=== PATIENT | female | born 1950 | race Caucasian/White ===

== ENCOUNTER 2024-03-22 13:45 | Outpatient (RCR) | payer MEDICARE, OTHER, SELFPAY ==
--- NOTE | 2023-11-22 12:34 | OT.OP.EVAL ---
Visit Care Team Role Provider Type RIA Xie Family Provider Non-Staff Primary Care Provider Specialty: Family Practice Address: [address], [place], [address] Email: Jaguar Hodges DO Attending Provider Non-Staff Referring Provider Specialty: Orthopedics Address: [address] [place] [address], [id number] Email: Occupational Therapy Initial Evaluation OT Outpatient Adult Evaluation Start: 11/22/23 12:06 Freq: Status: Active Protocol: Document 11/22/23 12:06 AMS (Rec: 11/22/23 12:34 AMS [id number]) General Information - Adult Visit Start Time 11:15 Visit Stop Time 11:55 Treatment Setting Outpatient Care Note Type Initial Evaluation Identification Confirmed Yes Identification Confirmed By Self Goals Treatment Initiated HEP. Electric Lift Truck Driver Goals 1. Krupa will be modified independent with home exercise program utilizing provided written and visual instructions from clinician as needed. 2. Krupa will be able to verbalize 100% understanding of basic joint protection principles (e.g., avoiding positions of deformity, avoiding tight sustained/ resistant pinches). 3. Krupa will be able to verbalize understanding of 2-3 different conservative measures of pain management for the hands. 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 Medical history is significant for arthritis, back pain, depression, dizziness/vertigo, migraine headaches, jaw pain, TKR left 2018, memory loss, shortness of breath, vision problems and gallbladder removal in 1991. Verbally reported arthritic nodules of R 3rd DIPJ, L hip pain, L hip bursitis, L IT band inflammation, L patellar tendon tracking difficulties, and CTS in the . Verbal report of h/o 2 corticosteroid injections to L thumb and 1 corticosteroid injection to R thumb. Krupa reports previously being seen by Lizy and being provided w/ custom brace for CMC arthritis; presents with [id number] splint that she wears on R 3rd DIPJ for protection. Whole Body Pain Assessment Grid completed; indication of 6 out of 10 on pain scale relative to L knee, 6 out of 10 relative to radial side of dorsum of L hand and 9 out of 10 relative to dorsum of R hand. Hand/ Wrist Pain Assessment Grid completed; indicated of 6-7 out of 10 relative to L DIPJ, 8-9 out of 10 relative to R 3rd DIPJ, 4 out of 10 relative to R 3rd PIPJ, 7 out of 10 relative to L thumb and 2-8 out of 10 relative to dorsum of R hand (d/t hitting the back of hand on dryer latch recently). 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 QuickDASH UE Outcome Measure Score = 29.55; QuickDASH UE Work Module Score = 12.5. She primarily utilizes ice packs in the home . She asks for assistance w/ opening jars; she uses an electric can residential direct support professional or uses the AE that was installed underneath her countertop to support opening of jars. She has a soft gel ball at home for use with her hands. 35 degrees active bilateral thumb abduction; 40 degrees active bilateral thumb palmar radial abduction. MPJ hyperextension noted of L thumb. B thumb webspace tightness. Outpatient OT is recommended to build upon already established HEP and joint protection education . Home Exercise Program 11/22/23 = Self-myofascial thumb adductor release; 20-30 sec hold and then switch w/ use of practice golf ball. Isometric/tug-o-war w/ functional 'c' w/ hold for 3-5 sec w/ practice sized golf ball, of 3 x 10 reps or as tolerated, 3 x a week or every other day. Length of treatment (weeks) 6 Plan of Care Start Date 11/22/23 Plan of Care End Date 01/03/24 Treatment Frequency Once a Week Therapeutic Contents Active Range of Motion, Adaptive Equipment Education, Functional Activities,Home Exercise Program,Joint Protection,Manual Therapy,Self -Care,Stretching/Flexibility Activities,Therapeutic Activities,Therapeutic Exercises,Modalities Modalities As Needed,As Prescribed Additional Types of Modalities Heat/Ice/Contrast Baths/ Ultrasound/Paraffin bath
--- NOTE | 2023-12-01 16:00 | OT.OP.TRT ---
Visit Care Team Role Provider Type RIA Xie Family Provider Non-Staff Primary Care Provider Specialty: Family Practice Address: [address] [facility] [address], [place], [address] Email: Jaguar Hodges DO Attending Provider Non-Staff Referring Provider Specialty: Orthopedics Address: [address] [place] [address], [id number] Email: Occupational Therapy Treatment Note OT Outpatient Treatment Note - Adult Start: 11/22/23 12:06 Freq: Status: Active Protocol: Document 12/01/23 16:00 AMS (Rec: 12/04/23 09:15 AMS [id number]) OT Outpatient Adult Treatment Note Session Time Visit Start Time 13:45 Visit Stop Time 14:28 Visit Information Visit Number 09/30; 10/09 Plan of Care Dates 11/22/23 - 01/03/24 Insurance Information Medicare; 19 visits -> KX Modifier visit Setting Treatment Setting Outpatient Care Visit Type Note Type Treatment Note General Information General Information Krupa is a 73 year-old right hand dominant female 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 Medical history is significant for arthritis, back pain, depression, dizziness/vertigo, migraine headaches, jaw pain, TKR left 2019, memory loss, shortness of breath, vision problems and gallbladder removal in 1991. Verbally reported arthritic nodules of R 3rd DIPJ, L hip pain, L hip bursitis, L IT band inflammation, L patellar tendon tracking difficulties, and CTS in the . Verbal report of h/o 2 corticosteroid injections to L thumb and 1 corticosteroid injection to R thumb. Krupa reports previously being seen by Lizy and being provided w/ custom brace for CMC arthritis; presents with [id number] splint that she wears on R 3rd DIPJ for protection. - Subjective Identification Type Name Identification Reconciled With Medical Record Observations Krupa reported buying practice 'golf balls' and ending up with a larger quantity than needed; indicated desire to review exercises. - Objective Objective Measurements Please refer to below for progress towards meeting established OT goals: Senior Care Goals 1. Krupa will be modified independent with home exercise program utilizing provided written and visual instructions from clinician as needed. 2. Krupa will be able to verbalize 100% understanding of basic joint protection principles (e.g., avoiding positions of deformity, avoiding tight sustained/ resistant pinches). 3. Krupa will be able to verbalize understanding of 2-3 different conservative measures of pain management for the hands. - Treatment 2 Descriptor Manual therapy provided by clinician; addressing L thumb adductor tightness. 1 Descriptor Ultrasound. 20% duty cycle. 2. 0 w/cm2. Skin intact pre- and post-treatment. Applied to dorsal thumb webspace of L hand; focus near 2nd metacarpal. Exercises 1 Descriptor HEP. Reviewed previously rec home exercises, including bilateral thumb webspace stretch w/ and without use of modification (practice golf ball) and place and hold/ isometric exercise w/ use of practice golf ball. Provided w / written and visual instructions for these 2 exercises. Provided w/ handout on basic joint protection; reviewed handout. Provided w/ handout on functional 'c' or ' o'. - Assessment Assessment of Improvement Reviewed HEP. Attempted to answer all questions. (+) tolerance of ultrasound/manual work to address L thumb webspace tightness. Provided handouts in re: basic joint protection and functional 'c' or 'o'. Outpatient OT is recommended to build upon already established HEP and joint protection education. Home Exercise Program 12/01/23 = Reviewed HEP. Provided written and visual instructions for exercises listed below. Provided handout on basic joint protection for the hands. Provided handout on functional 'c' or 'o'. 11/22/23 = Self-myofascial thumb adductor release; 20-30 sec hold and then switch w/ use of practice golf ball. Isometric/tug-o-war w/ functional 'c' w/ hold for 3-5 sec w/ practice sized golf ball, of 3 x 10 reps or as tolerated, 3 x a week or every other day. - Plan Therapy Recommendations Continue with Current Program, Advance per Rehabilitation Protocol
--- NOTE | 2023-12-08 16:04 | OT.OP.TRT ---
Visit Care Team Role Provider Type RIA Xie Family Provider Non-Staff Primary Care Provider Specialty: Family Practice Address: [address] [facility] [address], [place], [address] Email: Jaguar Hodges DO Attending Provider Non-Staff Referring Provider Specialty: Orthopedics Address: [address] [place] [address], [address] Email: Occupational Therapy Treatment Note OT Outpatient Treatment Note - Adult Start: 11/22/23 12:06 Freq: Status: Active Protocol: Document 12/08/23 15:58 AMS (Rec: 12/08/23 16:04 AMS [id number]) OT Outpatient Adult Treatment Note Session Time Visit Start Time 13:45 Visit Stop Time 14:25 Visit Information Visit Number 10/28; 11/06 Plan of Care Dates 11/22/23 - 01/03/24 Insurance Information Medicare; 19 visits -> KX Modifier visit Setting Treatment Setting Outpatient Care Visit Type Note Type Treatment Note General Information General Information Krupa is a 73 year-old right hand dominant female 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 Medical history is significant for arthritis, back pain, depression, dizziness/vertigo, migraine headaches, jaw pain, TKR left 2019, memory loss, shortness of breath, vision problems and gallbladder removal in 1991. Verbally reported arthritic nodules of R 3rd DIPJ, L hip pain, L hip bursitis, L IT band inflammation, L patellar tendon tracking difficulties, and CTS in the . Verbal report of h/o 2 corticosteroid injections to L thumb and 1 corticosteroid injection to R thumb. Krupa reports previously being seen by Lizy and being provided w/ custom brace for CMC arthritis; presents with [id number]-[id number]-[id number] splint that she wears on R 3rd DIPJ for protection. - Subjective Identification Type Name Identification Reconciled With Medical Record Observations Use of R 3rd digit splint which reportedly effectively disperses force over joint where metal insert and padded compartments are located. Krupa indicated that she got 6 of the finger splints off of [employer]. - Objective Objective Measurements Please refer to below for progress towards meeting established OT goals: Vending Service Technician Goals 1. Krupa will be modified independent with home exercise program utilizing provided written and visual instructions from clinician as needed. 2. Krupa will be able to verbalize 100% understanding of basic joint protection principles (e.g., avoiding positions of deformity, avoiding tight sustained/ resistant pinches). 3. Krupa will be able to verbalize understanding of 2-3 different conservative measures of pain management for the hands. - Treatment 2 Descriptor Manual therapy provided by clinician; addressing L thumb adductor tightness. 1 Descriptor Ultrasound. 20% duty cycle. 2. 0 w/cm2. Skin intact pre- and post-treatment. Applied to dorsal thumb webspace of L hand; focus near 2nd metacarpal. Exercises 1 Descriptor HEP. Reviewed previously rec home exercises, including bilateral thumb webspace stretch w/ and without use of modification (practice golf ball) and place and hold/ isometric exercise w/ use of practice golf ball. Provided w / written and visual instructions for these 2 exercises. Provided w/ handout on basic joint protection; reviewed handout. Provided w/ handout on functional 'c' or ' o'. - Assessment Assessment of Improvement Reviewed HEP. Attempted to answer all questions. (+) tolerance of ultrasound/manual work to address L thumb webspace tightness. Rec considering discussion of AE for gardening and/or modification/compensatory strategies, given that Krupa spends some time in her garden. Also rec consideration of provision of handout on arthritis and gardening. Outpatient OT is recommended to build upon already established HEP and joint protection education. Home Exercise Program 12/01/23 = Reviewed HEP. Provided written and visual instructions for exercises listed below. Provided handout on basic joint protection for the hands. Provided handout on functional 'c' or 'o'. 11/22/23 = Self-myofascial thumb adductor release; 20-30 sec hold and then switch w/ use of practice golf ball. Isometric/tug-o-war w/ functional 'c' w/ hold for 3-5 sec w/ practice sized golf ball, of 3 x 10 reps or as tolerated, 3 x a week or every other day. - Plan Therapy Recommendations Continue with Current Program, Advance per Rehabilitation Protocol
--- NOTE | 2023-12-13 15:29 | OT.OP.TRT ---
Visit Care Team Role Provider Type RIA Xie Family Provider Non-Staff Primary Care Provider Specialty: Family Practice Address: [address], [address], [place], [address] Email: Jaguar Hodges DO Attending Provider Non-Staff Referring Provider Specialty: Orthopedics Address: [facility] [place], [address] Email: Occupational Therapy Treatment Note OT Outpatient Treatment Note - Adult Start: 11/22/23 12:06 Freq: Status: Active Protocol: Document 12/13/23 15:23 AMS (Rec: 12/13/23 15:27 AMS [id number]) OT Outpatient Adult Treatment Note Session Time Visit Start Time 10:30 Visit Stop Time 11:13 Visit Information Visit Number 11/28; 01/06 Plan of Care Dates 11/22/23 - 01/03/24 Insurance Information Medicare; 19 visits -> KX Modifier visit Setting Treatment Setting Outpatient Care Visit Type Note Type Treatment Note General Information General Information Krupa is a 73 year-old right hand dominant female 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 Medical history is significant for arthritis, back pain, depression, dizziness/vertigo, migraine headaches, jaw pain, TKR left 2019, memory loss, shortness of breath, vision problems and gallbladder removal in 1991. Verbally reported arthritic nodules of R 3rd DIPJ, L hip pain, L hip bursitis, L IT band inflammation, L patellar tendon tracking difficulties, and CTS in the . Verbal report of h/o 2 corticosteroid injections to L thumb and 1 corticosteroid injection to R thumb. Krupa reports previously being seen by Lizy and being provided w/ custom brace for CMC arthritis; presents with [id number] splint that she wears on R 3rd DIPJ for protection. - Subjective Identification Type Name Identification Reconciled With Medical Record Observations Use of R 3rd digit splint which reportedly effectively disperses force over joint where metal insert and padded compartments are located; splints were obtained from [employer]. (+) report of eye pain /discomfort of the R eye; (+) report of taking med for presenting migraine symptoms at conclusion of session. - Objective Objective Measurements Please refer to below for progress towards meeting established OT goals: Food Service Employee Goals 1. Krupa will be modified independent with home exercise program utilizing provided written and visual instructions from clinician as needed. 2. Krupa will be able to verbalize 100% understanding of basic joint protection principles (e.g., avoiding positions of deformity, avoiding tight sustained/ resistant pinches). 3. Krupa will be able to verbalize understanding of 2-3 different conservative measures of pain management for the hands. - Treatment 2 Descriptor Manual therapy provided by clinician; addressing L thumb adductor tightness. 1 Descriptor Ultrasound. 20% duty cycle. 2. 0 w/cm2. Skin intact pre- and post-treatment. Applied to dorsal thumb webspace of L hand; focus near 2nd metacarpal. Exercises 1 Descriptor HEP. Reviewed previously rec home exercises, including bilateral thumb webspace stretch w/ and without use of modification (practice golf ball) and place and hold/ isometric exercise w/ use of practice golf ball. Provided w / written and visual instructions for these 2 exercises. Provided w/ handout created by [employer] for gardeners . - Assessment Assessment of Improvement Reviewed HEP. Attempted to answer all questions. (+) tolerance of ultrasound/manual work to address L thumb webspace tightness. Rec considering discussion of AE for gardening and/or modification/compensatory strategies, given that Krupa spends some time in her garden. Provided handout in re: gardening ([employer] recommendations). Krupa reported that she is going on vacation in a couple of weeks and is too busy in the interim w/ other appointments; thus, gap in sessions to occur. Outpatient OT is recommended to build upon already established HEP and joint protection education. Home Exercise Program 12/13/23 = Reviewed HEP. Provided handout w/ [employer] recommendations for gardeners. 12/01/23 = Reviewed HEP. Provided written and visual instructions for exercises listed below. Provided handout on basic joint protection for the hands. Provided handout on functional 'c' or 'o'. 11/22/23 = Self-myofascial thumb adductor release; 20-30 sec hold and then switch w/ use of practice golf ball. Isometric/tug-o-war w/ functional 'c' w/ hold for 3-5 sec w/ practice sized golf ball, of 3 x 10 reps or as tolerated, 3 x a week or every other day. - Plan Therapy Recommendations Continue with Current Program, Advance per Rehabilitation Protocol
--- NOTE | 2024-01-19 15:02 | OT.OPPOC ---
Physical, Occupational & Speech Therapy At [facility] Krupa Gray [id number] 1950 Visit Care Team Role Provider Type RIA Xie Family Provider Non-Staff Primary Care Provider Address: [address] [facility] [address], [place], [address] Jaguar Hodges DO Attending Provider Non-Staff Referring Provider Address: [address] [place] [address], [id number] Occupational Therapy Plan of Care OT Outpatient Adult Evaluation Start: 11/22/23 12:06 Freq: Status: Active Protocol: Document 11/22/23 12:06 AMS (Rec: 11/22/23 12:34 AMS [id number]) General Information - Adult Session Time Visit Start Time 11:15 Visit Stop Time 11:55 Setting Treatment Setting Outpatient Care Visit Type Note Type Initial Evaluation Identification Identification Confirmed Yes Identification Confirmed By Self Goals Treatment Treatment Initiated HEP. Dog Pound Attendant Goals Long-Term Goals 1. Krupa will be modified independent with home exercise program utilizing provided written and visual instructions from clinician as needed. 2. Krupa will be able to verbalize 100% understanding of basic joint protection principles (e.g., avoiding positions of deformity, avoiding tight sustained/ resistant pinches). 3. Krupa will be able to verbalize understanding of 2-3 different conservative measures of pain management for the hands. 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 Medical history is significant for arthritis, back pain, depression, dizziness/vertigo, migraine headaches, jaw pain, TKR left 2018, memory loss, shortness of breath, vision problems and gallbladder removal in 1991. Verbally reported arthritic nodules of R 3rd DIPJ, L hip pain, L hip bursitis, L IT band inflammation, L patellar tendon tracking difficulties, and CTS in the . Verbal report of h/o 2 corticosteroid injections to L thumb and 1 corticosteroid injection to R thumb. Krupa reports previously being seen by Lizy and being provided w/ custom brace for CMC arthritis; presents with qwzq-hvb-[id number] splint that she wears on R 3rd DIPJ for protection. Whole Body Pain Assessment Grid completed; indication of 6 out of 10 on pain scale relative to L knee, 6 out of 10 relative to radial side of dorsum of L hand and 9 out of 10 relative to dorsum of R hand. Hand/ Wrist Pain Assessment Grid completed; indicated of 6-7 out of 10 relative to L DIPJ, 8-9 out of 10 relative to R 3rd DIPJ, 4 out of 10 relative to R 3rd PIPJ, 7 out of 10 relative to L thumb and 2-8 out of 10 relative to dorsum of R hand (d/t hitting the back of hand on dryer latch recently). 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 QuickDASH UE Outcome Measure Score = 29.55; QuickDASH UE Work Module Score = 12.5. She primarily utilizes ice packs in the home . She asks for assistance w/ opening jars; she uses an electric can paragliding instructor or uses the AE that was installed underneath her countertop to support opening of jars. She has a soft gel ball at home for use with her hands. 35 degrees active bilateral thumb abduction; 40 degrees active bilateral thumb palmar radial abduction. MPJ hyperextension noted of L thumb. B thumb webspace tightness. Outpatient OT is recommended to build upon already established HEP and joint protection education . Home Exercise Program 11/22/23 = Self-myofascial thumb adductor release; 20-30 sec hold and then switch w/ use of practice golf ball. Isometric/tug-o-war w/ functional 'c' w/ hold for 3-5 sec w/ practice sized golf ball, of 3 x 10 reps or as tolerated, 3 x a week or every other day. Plan Length of treatment (weeks) 6 Plan of Care Start Date 11/22/23 Plan of Care End Date 01/03/24 Treatment Frequency Once a Week Therapeutic Contents Active Range of Motion, Adaptive Equipment Education, Functional Activities,Home Exercise Program,Joint Protection,Manual Therapy,Self -Care,Stretching/Flexibility Activities,Therapeutic Activities,Therapeutic Exercises,Modalities Modalities As Needed,As Prescribed Additional Types of Modalities Heat/Ice/Contrast Baths/ Ultrasound/Paraffin bath Functional Wrist/Hand Scan Hand Side Sensory Assessment Sensory Profile2 OT Outpatient Treatment Note - Adult Start: 11/22/23 12:06 Freq: Status: Active Protocol: Document 01/19/24 14:46 AMS (Rec: 01/19/24 15:01 AMS [id number]) OT Outpatient Adult Treatment Note Session Time Visit Start Time 13:00 Visit Stop Time 13:40 Visit Information Visit Number 11/28; 01/06 Plan of Care Dates 01/03/24 - 02/28/24 Insurance Information Medicare; 19 visits -> KX Modifier visit Setting Treatment Setting Outpatient Care Visit Type Note Type Progress Note General Information General Information Krupa is a 73 year-old right hand dominant female 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 Medical history is significant for arthritis, back pain, depression, dizziness/vertigo, migraine headaches, jaw pain, TKR left 2018, memory loss, shortness of breath, vision problems and gallbladder removal in 1991. Verbally reported arthritic nodules of R 3rd DIPJ, L hip pain, L hip bursitis, L IT band inflammation, L patellar tendon tracking difficulties, and CTS in the . Verbal report of h/o 2 corticosteroid injections to L thumb and 1 corticosteroid injection to R thumb. Krupa reports previously being seen by Lizy and being provided w/ custom brace for CMC arthritis; presents with [id number]-ivaxwqv splint that she wears on R 3rd DIPJ for protection. - Subjective Identification Type Name Identification Reconciled With Medical Record Observations Use of R 3rd digit splint which reportedly effectively disperses force over joint where metal insert and padded compartments are located; splints were obtained from [employer]. Patient/Caregiver Compliance with Home Good Exercise Program - Objective Objective Measurements Please refer to below for progress towards meeting established OT goals: Dog Pound Attendant Goals 1. Krupa will be modified independent with home exercise program utilizing provided written and visual instructions from clinician as needed. 2. Krupa will be able to verbalize understanding of 2-3 different conservative measures of pain management for the hands. GOALS MET Able to verbalize 100% understanding of basic joint protection principles (e.g., avoiding positions of deformity, avoiding tight sustained/resistant pinches). *MET 01/19/24; provided handout on basic joint protection principles for the hands - Treatment 2 Descriptor Manual therapy provided by clinician; addressing L thumb adductor tightness. 1 Descriptor Ultrasound. 20% duty cycle. 2. 0 w/cm2. Skin intact pre- and post-treatment. Applied to dorsal thumb webspace of L hand; focus near 2nd metacarpal. Ultrasound. 50% duty cycle. 1. 5 w/cm2. Skin intact pre- and post-treatment. Applied to volar surface of thumb/CMCJ. Exercises 1 Descriptor HEP. Reviewed previously rec home exercises, including bilateral thumb webspace stretch w/ and without use of modification (practice golf ball) and place and hold/ isometric exercise w/ use of practice golf ball. Provided w / written and visual instructions for these 2 exercises. Provided w/ handout created by [employer] for gardeners . - Assessment Assessment of Improvement Krupa has been provided w/ handout on basic joint protection principles, handout on utilization of functional 'c' or 'o', handout on ASHT recommendations for gardeners, and instructed in bilateral self-myofascial thumb adductor release, isometric/tug-o-war/ functional 'c' for home exercises. There has also been a discussion on gentle light resistance strengthening w/ use of single rubberband w/ thumb extension and thumb abduction. Outpatient OT is recommended to build upon already established HEP and joint protection education. Recommend discussing adaptive equipment further and/or compensatory/modification techniques that may be beneficial for Krupa in her day-to-day life. Home Exercise Program 12/13/23 = Reviewed HEP. Provided handout w/ ASHT recommendations for gardeners. 12/01/23 = Reviewed HEP. Provided written and visual instructions for exercises listed below. Provided handout on basic joint protection for the hands. Provided handout on functional 'c' or 'o'. 11/22/23 = Self-myofascial thumb adductor release; 20-30 sec hold and then switch w/ use of practice golf ball. Isometric/tug-o-war w/ functional 'c' w/ hold for 3-5 sec w/ practice sized golf ball, of 3 x 10 reps or as tolerated, 3 x a week or every other day. - Plan Therapy Recommendations Continue with Current Program, Advance per Rehabilitation Protocol Comment 8 weeks Frequency of Treatment Once a Week Therapeutic Contents Active Range of Motion, Adaptive Equipment Education, Client Education,Functional Activities,Home Exercise Program,Joint Protection, Manual Therapy,Education, Neurodevelopment Treatment, Neuromuscular Re-Education, Self-Care,Stretching/ Flexibility Activities, Therapeutic Activities, Therapeutic Exercises, Modalities Modalities As Needed,As Prescribed Additional Types of Modalities Heat/Ice/Contrast Baths/ Ultrasound/Paraffin Bath Electronically Signed by: Mela Bateman OT 01/19/24 [id number] If you are in agreement with this Plan of Care, please return a signed and dated copy. I have reviewed this Plan of Care and certify that the skilled therapy services above are required to meet the patient?s needs. Physician Signature Date Printed Name and Credentials Clinical Instructor Signature Printed Name and Credentials
--- NOTE | 2024-01-26 15:51 | OT.OP.TRT ---
Visit Care Team Role Provider Type RIA Xie Family Provider Non-Staff Primary Care Provider Specialty: Family Practice Address: [address] [facility] [address], [place], [address] Email: Jaguar Hodges DO Attending Provider Non-Staff Referring Provider Specialty: Orthopedics Address: [address] [place] [address], [id number] Email: Occupational Therapy Treatment Note OT Outpatient Treatment Note - Adult Start: 11/22/23 12:06 Freq: Status: Active Protocol: Document 01/26/24 15:44 AMS (Rec: 01/26/24 15:51 AMS [id number]) OT Outpatient Adult Treatment Note Session Time Visit Start Time 13:05 Visit Stop Time 13:45 Visit Information Visit Number 11/28; 01/06 Plan of Care Dates 01/03/24 - 02/28/24 Insurance Information Medicare; 19 visits -> KX Modifier visit Setting Treatment Setting Outpatient Care Visit Type Note Type Progress Note General Information General Information Krupa is a 73 year-old right hand dominant female 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 Medical history is significant for arthritis, back pain, depression, dizziness/vertigo, migraine headaches, jaw pain, TKR left 2019, memory loss, shortness of breath, vision problems and gallbladder removal in 1991. Verbally reported arthritic nodules of R 3rd DIPJ, L hip pain, L hip bursitis, L IT band inflammation, L patellar tendon tracking difficulties, and CTS in the . Verbal report of h/o 2 corticosteroid injections to L thumb and 1 corticosteroid injection to R thumb. Krupa reports previously being seen by Lizy and being provided w/ custom brace for CMC arthritis; presents with rste-xce-rndgfzz splint that she wears on R 3rd DIPJ for protection. - Subjective Identification Type Name Identification Reconciled With Medical Record Observations Use of R 3rd digit splint which reportedly effectively disperses force over joint where metal insert and padded compartments are located; splints were obtained from [employer]. Patient/Caregiver Compliance with Home Good Exercise Program - Objective Objective Measurements Please refer to below for progress towards meeting established OT goals: Aids Counselor Goals 1. Krupa will be modified independent with home exercise program utilizing provided written and visual instructions from clinician as needed. 2. Krupa will be able to verbalize understanding of 2-3 different conservative measures of pain management for the hands. GOALS MET Able to verbalize 100% understanding of basic joint protection principles (e.g., avoiding positions of deformity, avoiding tight sustained/resistant pinches). *MET 01/19/24; provided handout on basic joint protection principles for the hands - Treatment 2 Descriptor Manual therapy provided by clinician; addressing L thumb adductor tightness. 1 Descriptor Ultrasound. 20% duty cycle. 2. 0 w/cm2. Skin intact pre- and post-treatment. Applied to dorsal thumb webspace of L hand; focus near 2nd metacarpal. Ultrasound. 50% duty cycle. 1. 5 w/cm2. Skin intact pre- and post-treatment. Applied to volar surface of thumb/CMCJ. - Assessment Assessment of Improvement (+) response to modalities and manual work. Recommend consideration of pillow/ cushion if change in sensation occurs w/ reading ( particularly if it it occurs w / sustained/prolonged positioning w/ utilization of hard surface at elbow level). Krupa verbalized understanding. She reports having access to ice and heat for managing symptoms. Report of engaging in pilates and PT exercises for spine; she is aware of task analysis/ breaking things down into smaller components/smaller tasks to avoid static postures and/or encourage movement/ change in position. Krupa has been provided w/ handout on basic joint protection principles, handout on utilization of functional 'c' or 'o', handout on ASHT recommendations for gardeners, and instructed in bilateral self-myofascial thumb adductor release, isometric/tug-o-war/ functional 'c' for home exercises. There has also been a discussion on gentle light resistance strengthening w/ use of single rubberband w/ thumb extension and thumb abduction. Outpatient OT is recommended to build upon already established HEP and joint protection education. Recommend discussing adaptive equipment further and/or compensatory/modification techniques that may be beneficial for Krupa in her day-to-day life. Home Exercise Program 12/13/23 = Reviewed HEP. Provided handout w/ [employer]HT recommendations for gardeners. 12/01/23 = Reviewed HEP. Provided written and visual instructions for exercises listed below. Provided handout on basic joint protection for the hands. Provided handout on functional 'c' or 'o'. 11/22/23 = Self-myofascial thumb adductor release; 20-30 sec hold and then switch w/ use of practice golf ball. Isometric/tug-o-war w/ functional 'c' w/ hold for 3-5 sec w/ practice sized golf ball, of 3 x 10 reps or as tolerated, 3 x a week or every other day. - Plan Therapy Recommendations Continue with Current Program, Advance per Rehabilitation Protocol Modalities As Needed,As Prescribed Additional Types of Modalities Heat/Ice/Contrast Baths/ Ultrasound/Paraffin Bath
--- NOTE | 2024-02-21 15:26 | OT.OP.TRT ---
Visit Care Team Role Provider Type RIA Xie Family Provider Non-Staff Primary Care Provider Specialty: Family Practice Address: [address] [facility] [address], [place], [address] Email: Jaguar Hodges DO Attending Provider Non-Staff Referring Provider Specialty: Orthopedics Address: [address] [place] [address], [id number] Email: Occupational Therapy Treatment Note OT Outpatient Treatment Note - Adult Start: 11/22/23 12:06 Freq: Status: Active Protocol: Document 02/21/24 13:55 AMS (Rec: 02/21/24 15:26 AMS [id number]) OT Outpatient Adult Treatment Note Session Time Visit Start Time 13:15 Visit Stop Time 13:45 Visit Information Visit Number 12/28; 01/06 Plan of Care Dates 01/03/24 - 02/28/24 Insurance Information Medicare; 19 visits -> KX Modifier visit Setting Treatment Setting Outpatient Care Visit Type Note Type Treatment Note General Information General Information Krupa is a 73 year-old right hand dominant female 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 Medical history is significant for arthritis, back pain, depression, dizziness/vertigo, migraine headaches, jaw pain, TKR left 2019, memory loss, shortness of breath, vision problems and gallbladder removal in 1991. Verbally reported arthritic nodules of R 3rd DIPJ, L hip pain, L hip bursitis, L IT band inflammation, L patellar tendon tracking difficulties, and CTS in the . Verbal report of h/o 2 corticosteroid injections to L thumb and 1 corticosteroid injection to R thumb. Krupa reports previously being seen by Lizy and being provided w/ custom brace for CMC arthritis; presents with rsfy-rlo-neavlbp splint that she wears on R 3rd DIPJ for protection. - Subjective Identification Type Name Identification Reconciled With Medical Record Observations Use of R 3rd digit splint which reportedly effectively disperses force over joint where metal insert and padded compartments are located; splints were obtained from [employer]. Patient/Caregiver Compliance with Home Good Exercise Program - Objective Objective Measurements Please refer to below for progress towards meeting established OT goals: Nursing Home Goals 1. Krupa will be modified independent with home exercise program utilizing provided written and visual instructions from clinician as needed. 2. Krupa will be able to verbalize understanding of 2-3 different conservative measures of pain management for the hands. GOALS MET Able to verbalize 100% understanding of basic joint protection principles (e.g., avoiding positions of deformity, avoiding tight sustained/resistant pinches). *MET 01/19/24; provided handout on basic joint protection principles for the hands - Treatment 2 Descriptor Manual therapy provided by clinician; addressing L thumb adductor tightness. 1 Descriptor Ultrasound. 20% duty cycle. 2. 0 w/cm2. Skin intact pre- and post-treatment. Applied to dorsal thumb webspace of L hand; focus near 2nd metacarpal. Ultrasound. 50% duty cycle. 1. 5 w/cm2. Skin intact pre- and post-treatment. Applied to volar surface of thumb/CMCJ. - Assessment Assessment of Improvement (+) response to modalities and manual work. Recommend consideration of pillow/ cushion if change in sensation occurs w/ reading ( particularly if it it occurs w / sustained/prolonged positioning w/ utilization of hard surface at elbow level). She reports having access to ice and heat for managing symptoms. She has demonstrated ability to break down tasks into smaller steps/smaller components. Outpatient OT is recommended to build upon already established HEP and joint protection education. Recommend discussing adaptive equipment further and/or compensatory/modification techniques that may be beneficial for Krupa in her day-to-day life. Home Exercise Program 12/13/23 = Reviewed HEP. Provided handout w/ [employer] recommendations for gardeners. 12/01/23 = Reviewed HEP. Provided written and visual instructions for exercises listed below. Provided handout on basic joint protection for the hands. Provided handout on functional 'c' or 'o'. 11/22/23 = Self-myofascial thumb adductor release; 20-30 sec hold and then switch w/ use of practice golf ball. Isometric/tug-o-war w/ functional 'c' w/ hold for 3-5 sec w/ practice sized golf ball, of 3 x 10 reps or as tolerated, 3 x a week or every other day. - Plan Therapy Recommendations Continue with Current Program, Advance per Rehabilitation Protocol Modalities As Needed,As Prescribed Additional Types of Modalities Heat/Ice/Contrast Baths/ Ultrasound/Paraffin Bath
--- NOTE | 2024-03-22 15:45 | OT.OPPOC ---
Physical, Occupational & Speech Therapy At [facility] Krupa Gray [id number] 1950 Visit Care Team Role Provider Type RIA Xie Family Provider Non-Staff Primary Care Provider Address: [address] [facility] [facility] [address], [place], [address] Jaguar Hodges DO Attending Provider Non-Staff Referring Provider Address: [address] [place] [address], [id number] Occupational Therapy Plan of Care OT Outpatient Adult Evaluation Start: 11/22/23 12:06 Freq: Status: Active Protocol: Document 11/22/23 12:06 AMS (Rec: 11/22/23 12:34 AMS [id number]) General Information - Adult Session Time Visit Start Time 11:15 Visit Stop Time 11:55 Setting Treatment Setting Outpatient Care Visit Type Note Type Initial Evaluation Identification Identification Confirmed Yes Identification Confirmed By Self Goals Treatment Treatment Initiated HEP. Associate Director Goals Correction Goals 1. Krupa will be modified independent with home exercise program utilizing provided written and visual instructions from clinician as needed. 2. rKupa will be able to verbalize 100% understanding of basic joint protection principles (e.g., avoiding positions of deformity, avoiding tight sustained/ resistant pinches). 3. Krupa will be able to verbalize understanding of 2-3 different conservative measures of pain management for the hands. 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 Medical history is significant for arthritis, back pain, depression, dizziness/vertigo, migraine headaches, jaw pain, TKR left 2018, memory loss, shortness of breath, vision problems and gallbladder removal in 1991. Verbally reported arthritic nodules of R 3rd DIPJ, L hip pain, L hip bursitis, L IT band inflammation, L patellar tendon tracking difficulties, and CTS in the . Verbal report of h/o 2 corticosteroid injections to L thumb and 1 corticosteroid injection to R thumb. Krupa reports previously being seen by Lizy and being provided w/ custom brace for CMC arthritis; presents with [id number] splint that she wears on R 3rd DIPJ for protection. Whole Body Pain Assessment Grid completed; indication of 6 out of 10 on pain scale relative to L knee, 6 out of 10 relative to radial side of dorsum of L hand and 9 out of 10 relative to dorsum of R hand. Hand/ Wrist Pain Assessment Grid completed; indicated of 6-7 out of 10 relative to L DIPJ, 8-9 out of 10 relative to R 3rd DIPJ, 4 out of 10 relative to R 3rd PIPJ, 7 out of 10 relative to L thumb and 2-8 out of 10 relative to dorsum of R hand (d/t hitting the back of hand on dryer latch recently). 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 QuickDASH UE Outcome Measure Score = 29.55; QuickDASH UE Work Module Score = 12.5. She primarily utilizes ice packs in the home . She asks for assistance w/ opening jars; she uses an electric can controller coal or ore or uses the AE that was installed underneath her countertop to support opening of jars. She has a soft gel ball at home for use with her hands. 35 degrees active bilateral thumb abduction; 40 degrees active bilateral thumb palmar radial abduction. MPJ hyperextension noted of L thumb. B thumb webspace tightness. Outpatient OT is recommended to build upon already established HEP and joint protection education . Home Exercise Program 11/22/23 = Self-myofascial thumb adductor release; 20-30 sec hold and then switch w/ use of practice golf ball. Isometric/tug-o-war w/ functional 'c' w/ hold for 3-5 sec w/ practice sized golf ball, of 3 x 10 reps or as tolerated, 3 x a week or every other day. Plan Length of treatment (weeks) 6 Plan of Care Start Date 11/22/23 Plan of Care End Date 01/03/24 Treatment Frequency Once a Week Therapeutic Contents Active Range of Motion, Adaptive Equipment Education, Functional Activities,Home Exercise Program,Joint Protection,Manual Therapy,Self -Care,Stretching/Flexibility Activities,Therapeutic Activities,Therapeutic Exercises,Modalities Modalities As Needed,As Prescribed Additional Types of Modalities Heat/Ice/Contrast Baths/ Ultrasound/Paraffin bath Functional Wrist/Hand Scan Hand Side Sensory Assessment Sensory Profile2 OT Outpatient Treatment Note - Adult Start: 11/22/23 12:06 Freq: Status: Active Protocol: Document 03/22/24 15:45 AMS (Rec: 03/25/24 15:54 AMS [id number]) OT Outpatient Adult Treatment Note Session Time Visit Start Time 13:45 Visit Stop Time 14:20 Visit Information Visit Number 01/28; 02/06 Plan of Care Dates 02/28/24 - 04/17/24 Insurance Information Medicare; 19 visits -> KX Modifier visit Setting Treatment Setting Outpatient Care Visit Type Note Type Progress Note General Information General Information Krupa is a 73 year-old right hand dominant female 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 Medical history is significant for arthritis, back pain, depression, dizziness/vertigo, migraine headaches, jaw pain, TKR left 2018, memory loss, shortness of breath, vision problems and gallbladder removal in 1991. Verbally reported arthritic nodules of R 3rd DIPJ, L hip pain, L hip bursitis, L IT band inflammation, L patellar tendon tracking difficulties, and CTS in the . Verbal report of h/o 2 corticosteroid injections to L thumb and 1 corticosteroid injection to R thumb. Krupa reports previously being seen by Lizy and being provided w/ custom brace for CMC arthritis; presents with [id number] splint that she wears on R 3rd DIPJ for protection. - Subjective Identification Type Name Identification Reconciled With Medical Record Observations Use of R 3rd digit splint which reportedly effectively disperses force over joint where metal insert and padded compartments are located; splints were obtained from [employer]. Reported recently finding her L thumb splint; she indicated that she takes it off to do things. Patient/Caregiver Compliance with Home Good Exercise Program - Objective Objective Measurements Please refer to below for progress towards meeting established OT goals: Correction Goals 1. Krupa will be modified independent with home exercise program utilizing provided written and visual instructions from clinician as needed. GOALS MET able to verbalize understanding of 2-3 different conservative measures of pain management for the hands. * MET 03/22/24 Able to verbalize 100% understanding of basic joint protection principles (e.g., avoiding positions of deformity, avoiding tight sustained/resistant pinches). *MET 01/19/24; provided handout on basic joint protection principles for the hands - Treatment 2 Descriptor Manual therapy provided by clinician; addressing L thumb adductor tightness. 1 Descriptor Ultrasound. 20% duty cycle. 2. 0 w/cm2. Skin intact pre- and post-treatment. Applied to dorsal thumb webspace of L hand; focus near 2nd metacarpal. Ultrasound. 50% duty cycle. 1. 5 w/cm2. Skin intact pre- and post-treatment. Applied to volar surface of thumb/CMCJ. - Assessment Assessment of Improvement Krupa reports having access to ice and heat for managing pain/discomfort symptoms; she also has access to over-the- counter splints for her R distal digit and for her L thumb. Although, she reports removal of L thumb splint when engaging in task completion. Thus, she may benefit from a custom-splint made by [employer]. Krupa has demonstrated ability to break down tasks into smaller steps/smaller components based on finger/ hand pain/discomfort. She has responded positively to modalities and manual work. Clinician has also recommended that she considers use of pillow/cushion if change in sensation occurs w/ reading ( particularly if it it occurs w / sustained/prolonged positioning w/ utilization of hard surface at elbow level). Home investment in paraffin bath has been recommended; Krupa is also considering contacting Dr. Hodges for receipt of corticosteroid injection to the L thumb. Additional visits are rec if questions arise re: AE/ modification techniques or strategies/or conservative measurements of pain or discomfort. Home Exercise Program 12/13/23 = Reviewed HEP. Provided handout w/ ASHT recommendations for gardeners. 12/01/23 = Reviewed HEP. Provided written and visual instructions for exercises listed below. Provided handout on basic joint protection for the hands. Provided handout on functional 'c' or 'o'. 11/22/23 = Self-myofascial thumb adductor release; 20-30 sec hold and then switch w/ use of practice golf ball. Isometric/tug-o-war w/ functional 'c' w/ hold for 3-5 sec w/ practice sized golf ball, of 3 x 10 reps or as tolerated, 3 x a week or every other day. - Plan Therapy Recommendations Continue with Current Program, Advance per Rehabilitation Protocol Comment 8 weeks Frequency of Treatment Once a Week Therapeutic Contents Active Range of Motion, Adaptive Equipment Education, Functional Activities,Home Exercise Program,Joint Protection,Manual Therapy, Education,Neurodevelopment Treatment,Neuromuscular Re- Education,Self-Care,Stretching /Flexibility Activities, Therapeutic Activities, Therapeutic Exercises, Modalities Modalities As Needed,As Prescribed Additional Types of Modalities Heat/Ice/Contrast Baths/ Ultrasound/Paraffin Bath Electronically Signed by: Mela Bateman OT 03/25/24 0548 If you are in agreement with this Plan of Care, please return a signed and dated copy. I have reviewed this Plan of Care and certify that the skilled therapy services above are required to meet the patient?s needs. Physician Signature Date Printed Name and Credentials Clinical Instructor Signature Printed Name and Credentials
--- NOTE | 2024-03-25 15:54 | OT.OPPOC ---
Physical, Occupational & Speech Therapy At [facility] Krupa Gray [id number] 1950 Visit Care Team Role Provider Type RIA Xie Family Provider Non-Staff Primary Care Provider Address: [address] [facility] [address], [address] Jaguar Hodges DO Attending Provider Non-Staff Referring Provider Address: [address] [place] [address], [address] Occupational Therapy Plan of Care OT Outpatient Adult Evaluation Start: 11/22/23 12:06 Freq: Status: Active Protocol: Document 11/22/23 12:06 AMS (Rec: 11/22/23 12:34 AMS [id number]) General Information - Adult Session Time Visit Start Time 11:15 Visit Stop Time 11:55 Setting Treatment Setting Outpatient Care Visit Type Note Type Initial Evaluation Identification Identification Confirmed Yes Identification Confirmed By Self Goals Treatment Treatment Initiated HEP. Public Works Technician Goals Assisted Goals 1. Krupa will be modified independent with home exercise program utilizing provided written and visual instructions from clinician as needed. 2. Krupa will be able to verbalize 100% understanding of basic joint protection principles (e.g., avoiding positions of deformity, avoiding tight sustained/ resistant pinches). 3. Krupa will be able to verbalize understanding of 2-3 different conservative measures of pain management for the hands. 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 Medical history is significant for arthritis, back pain, depression, dizziness/vertigo, migraine headaches, jaw pain, TKR left 2018, memory loss, shortness of breath, vision problems and gallbladder removal in 1991. Verbally reported arthritic nodules of R 3rd DIPJ, L hip pain, L hip bursitis, L IT band inflammation, L patellar tendon tracking difficulties, and CTS in the . Verbal report of h/o 2 corticosteroid injections to L thumb and 1 corticosteroid injection to R thumb. Krupa reports previously being seen by Lizy and being provided w/ custom brace for CMC arthritis; presents with [id number] splint that she wears on R 3rd DIPJ for protection. Whole Body Pain Assessment Grid completed; indication of 6 out of 10 on pain scale relative to L knee, 6 out of 10 relative to radial side of dorsum of L hand and 9 out of 10 relative to dorsum of R hand. Hand/ Wrist Pain Assessment Grid completed; indicated of 6-7 out of 10 relative to L DIPJ, 8-9 out of 10 relative to R 3rd DIPJ, 4 out of 10 relative to R 3rd PIPJ, 7 out of 10 relative to L thumb and 2-8 out of 10 relative to dorsum of R hand (d/t hitting the back of hand on dryer latch recently). Kruap reported that she is working part-time in which she primarily completes computer based tasks ; she has a raised keyboard and avoids being stationary in any position d/t resulting discomfort. QuickDASH UE Outcome Measure Score = 29.55; QuickDASH UE Work Module Score = 12.5. She primarily utilizes ice packs in the home . She asks for assistance w/ opening jars; she uses an electric can chick sexer or uses the AE that was installed underneath her countertop to support opening of jars. She has a soft gel ball at home for use with her hands. 35 degrees active bilateral thumb abduction; 40 degrees active bilateral thumb palmar radial abduction. MPJ hyperextension noted of L thumb. B thumb webspace tightness. Outpatient OT is recommended to build upon already established HEP and joint protection education . Home Exercise Program 11/22/23 = Self-myofascial thumb adductor release; 20-30 sec hold and then switch w/ use of practice golf ball. Isometric/tug-o-war w/ functional 'c' w/ hold for 3-5 sec w/ practice sized golf ball, of 3 x 10 reps or as tolerated, 3 x a week or every other day. Plan Length of treatment (weeks) 6 Plan of Care Start Date 11/22/23 Plan of Care End Date 01/03/24 Treatment Frequency Once a Week Therapeutic Contents Active Range of Motion, Adaptive Equipment Education, Functional Activities,Home Exercise Program,Joint Protection,Manual Therapy,Self -Care,Stretching/Flexibility Activities,Therapeutic Activities,Therapeutic Exercises,Modalities Modalities As Needed,As Prescribed Additional Types of Modalities Heat/Ice/Contrast Baths/ Ultrasound/Paraffin bath Functional Wrist/Hand Scan Hand Side Sensory Assessment Sensory Profile2 OT Outpatient Treatment Note - Adult Start: 11/22/23 12:06 Freq: Status: Active Protocol: Document 03/22/24 15:45 AMS (Rec: 03/25/24 15:54 AMS [id number]) OT Outpatient Adult Treatment Note Session Time Visit Start Time 13:45 Visit Stop Time 14:20 Visit Information Visit Number 01/28; 02/06 Plan of Care Dates 02/28/24 - 04/17/24 Insurance Information Medicare; 19 visits -> KX Modifier visit Setting Treatment Setting Outpatient Care Visit Type Note Type Progress Note General Information General Information Krupa is a 73 year-old right hand dominant female 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 Medical history is significant for arthritis, back pain, depression, dizziness/vertigo, migraine headaches, jaw pain, TKR left 2018, memory loss, shortness of breath, vision problems and gallbladder removal in 1991. Verbally reported arthritic nodules of R 3rd DIPJ, L hip pain, L hip bursitis, L IT band inflammation, L patellar tendon tracking difficulties, and CTS in the . Verbal report of h/o 2 corticosteroid injections to L thumb and 1 corticosteroid injection to R thumb. Krupa reports previously being seen by Lizy and being provided w/ custom brace for CMC arthritis; presents with [id number] splint that she wears on R 3rd DIPJ for protection. - Subjective Identification Type Name Identification Reconciled With Medical Record Observations Use of R 3rd digit splint which reportedly effectively disperses force over joint where metal insert and padded compartments are located; splints were obtained from [employer]. Reported recently finding her L thumb splint; she indicated that she takes it off to do things. Patient/Caregiver Compliance with Home Good Exercise Program - Objective Objective Measurements Please refer to below for progress towards meeting established OT goals: Assisted Goals 1. Krupa will be modified independent with home exercise program utilizing provided written and visual instructions from clinician as needed. GOALS MET able to verbalize understanding of 2-3 different conservative measures of pain management for the hands. * MET 03/22/24 Able to verbalize 100% understanding of basic joint protection principles (e.g., avoiding positions of deformity, avoiding tight sustained/resistant pinches). *MET 01/19/24; provided handout on basic joint protection principles for the hands - Treatment 2 Descriptor Manual therapy provided by clinician; addressing L thumb adductor tightness. 1 Descriptor Ultrasound. 20% duty cycle. 2. 0 w/cm2. Skin intact pre- and post-treatment. Applied to dorsal thumb webspace of L hand; focus near 2nd metacarpal. Ultrasound. 50% duty cycle. 1. 5 w/cm2. Skin intact pre- and post-treatment. Applied to volar surface of thumb/CMCJ. - Assessment Assessment of Improvement Krupa reports having access to ice and heat for managing pain/discomfort symptoms; she also has access to over-the- counter splints for her R distal digit and for her L thumb. Although, she reports removal of L thumb splint when engaging in task completion. Thus, she may benefit from a custom-splint made by [employer]. Krupa has demonstrated ability to break down tasks into smaller steps/smaller components based on finger/ hand pain/discomfort. She has responded positively to modalities and manual work. Clinician has also recommended that she considers use of pillow/cushion if change in sensation occurs w/ reading ( particularly if it it occurs w / sustained/prolonged positioning w/ utilization of hard surface at elbow level). Home investment in paraffin bath has been recommended; Krupa is also considering contacting Dr. Hodges for receipt of corticosteroid injection to the L thumb. Additional visits are rec if questions arise re: AE/ modification techniques or strategies/or conservative measurements of pain or discomfort. Home Exercise Program 12/13/23 = Reviewed HEP. Provided handout w/ ASHT recommendations for gardeners. 12/01/23 = Reviewed HEP. Provided written and visual instructions for exercises listed below. Provided handout on basic joint protection for the hands. Provided handout on functional 'c' or 'o'. 11/22/23 = Self-myofascial thumb adductor release; 20-30 sec hold and then switch w/ use of practice golf ball. Isometric/tug-o-war w/ functional 'c' w/ hold for 3-5 sec w/ practice sized golf ball, of 3 x 10 reps or as tolerated, 3 x a week or every other day. - Plan Therapy Recommendations Continue with Current Program, Advance per Rehabilitation Protocol Comment 8 weeks Frequency of Treatment Once a Week Therapeutic Contents Active Range of Motion, Adaptive Equipment Education, Functional Activities,Home Exercise Program,Joint Protection,Manual Therapy, Education,Neurodevelopment Treatment,Neuromuscular Re- Education,Self-Care,Stretching /Flexibility Activities, Therapeutic Activities, Therapeutic Exercises, Modalities Modalities As Needed,As Prescribed Additional Types of Modalities Heat/Ice/Contrast Baths/ Ultrasound/Paraffin Bath Electronically Signed by: Mela Bateman, OT 03/25/24 3030 If you are in agreement with this Plan of Care, please return a signed and dated copy. I have reviewed this Plan of Care and certify that the skilled therapy services above are required to meet the patient?s needs. Physician Signature Date Printed Name and Credentials Clinical Instructor Signature Printed Name and Credentials
--- NOTE | 2024-04-25 09:15 | OT.OP.DC ---
Visit Care Team Role Provider Type RIA Xie Family Provider Non-Staff [facility] [address], [place], [address] Email: Jaguar Hodges DO Attending Provider Non-Staff Referring Provider Address: [address] [place] [address], [id number] Email: OT Outpatient OT Outpatient Adult Evaluation Start: 11/22/23 12:06 Freq: Status: Active Protocol: Document 11/22/23 12:06 AMS (Rec: 11/22/23 12:34 AMS [id number]) General Information - Adult Session Time Visit Start Time 11:15 Visit Stop Time 11:55 Setting Treatment Setting Outpatient Care Visit Type Note Type Initial Evaluation Identification Identification Confirmed Yes Identification Confirmed By Self Goals Treatment Treatment Initiated HEP. Associate Drafter Goals Associate Drafter Goals 1. Krupa will be modified independent with home exercise program utilizing provided written and visual instructions from clinician as needed. 2. Krupa will be able to verbalize 100% understanding of basic joint protection principles (e.g., avoiding positions of deformity, avoiding tight sustained/ resistant pinches). 3. Krupa will be able to verbalize understanding of 2-3 different conservative measures of pain management for the hands. 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 Medical history is significant for arthritis, back pain, depression, dizziness/vertigo, migraine headaches, jaw pain, TKR left 2018, memory loss, shortness of breath, vision problems and gallbladder removal in 1991. Verbally reported arthritic nodules of R 3rd DIPJ, L hip pain, L hip bursitis, L IT band inflammation, L patellar tendon tracking difficulties, and CTS in the . Verbal report of h/o 2 corticosteroid injections to L thumb and 1 corticosteroid injection to R thumb. Krupa reports previously being seen by Lizy and being provided w/ custom brace for CMC arthritis; presents with wciz-yoh-denqkaq splint that she wears on R 3rd DIPJ for protection. Whole Body Pain Assessment Grid completed; indication of 6 out of 10 on pain scale relative to L knee, 6 out of 10 relative to radial side of dorsum of L hand and 9 out of 10 relative to dorsum of R hand. Hand/ Wrist Pain Assessment Grid completed; indicated of 6-7 out of 10 relative to L DIPJ, 8-9 out of 10 relative to R 3rd DIPJ, 4 out of 10 relative to R 3rd PIPJ, 7 out of 10 relative to L thumb and 2-8 out of 10 relative to dorsum of R hand (d/t hitting the back of hand on dryer latch recently). 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 QuickDASH UE Outcome Measure Score = 29.55; QuickDASH UE Work Module Score = 12.5. She primarily utilizes ice packs in the home . She asks for assistance w/ opening jars; she uses an electric can clinical trial associate or uses the AE that was installed underneath her countertop to support opening of jars. She has a soft gel ball at home for use with her hands. 35 degrees active bilateral thumb abduction; 40 degrees active bilateral thumb palmar radial abduction. MPJ hyperextension noted of L thumb. B thumb webspace tightness. Outpatient OT is recommended to build upon already established HEP and joint protection education . Home Exercise Program 11/22/23 = Self-myofascial thumb adductor release; 20-30 sec hold and then switch w/ use of practice golf ball. Isometric/tug-o-war w/ functional 'c' w/ hold for 3-5 sec w/ practice sized golf ball, of 3 x 10 reps or as tolerated, 3 x a week or every other day. Plan Length of treatment (weeks) 6 Plan of Care Start Date 11/22/23 Plan of Care End Date 01/03/24 Treatment Frequency Once a Week Therapeutic Contents Active Range of Motion, Adaptive Equipment Education, Functional Activities,Home Exercise Program,Joint Protection,Manual Therapy,Self -Care,Stretching/Flexibility Activities,Therapeutic Activities,Therapeutic Exercises,Modalities Modalities As Needed,As Prescribed Additional Types of Modalities Heat/Ice/Contrast Baths/ Ultrasound/Paraffin bath Functional Wrist/Hand Scan Hand Side Sensory Assessment Sensory Profile2 OT Outpatient Treatment Note - Adult Start: 11/22/23 12:06 Freq: Status: Active Protocol: Document 04/25/24 09:13 [facility] (Rec: 04/25/24 09:15 [facility] [id number]) OT Outpatient Adult Treatment Note Visit Information Visit Number 01/28; 02/06 Plan of Care Dates 02/28/24 - 04/17/24 Insurance Information Medicare; 19 visits -> KX Modifier 20th visit Setting Treatment Setting Outpatient Care Visit Type Note Type Discharge Summary General Information General Information Krupa is a 73 year-old right hand dominant female 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 Medical history is significant for arthritis, back pain, depression, dizziness/vertigo, migraine headaches, jaw pain, TKR left 2018, memory loss, shortness of breath, vision problems and gallbladder removal in 1991. Verbally reported arthritic nodules of R 3rd DIPJ, L hip pain, L hip bursitis, L IT band inflammation, L patellar tendon tracking difficulties, and CTS in the . Verbal report of h/o 2 corticosteroid injections to L thumb and 1 corticosteroid injection to R thumb. Krupa reports previously being seen by Lizy and being provided w/ custom brace for CMC arthritis; presents with axby-ked-lqkjyct splint that she wears on R 3rd DIPJ for protection. - Subjective Observations Krupa has not been seen in the outpatient setting by OT since 03/22/24 and outpatient OT POC on 04/17/24. Thus, recommend d/c from outpatient OT at this time. Clinician to re-evaluate as deemed appropriate by PCP with receipt of new referral for OT . - Objective Objective Measurements Please refer to below for progress towards meeting established OT goals: Associate Drafter Goals ALL GOALS D/C 04/25/24 1. Krupa will be modified independent with home exercise program utilizing provided written and visual instructions from clinician as needed. GOALS MET able to verbalize understanding of 2-3 different conservative measures of pain management for the hands. * MET 03/22/24 Able to verbalize 100% understanding of basic joint protection principles (e.g., avoiding positions of deformity, avoiding tight sustained/resistant pinches). *MET 01/19/24; provided handout on basic joint protection principles for the hands - - Assessment Assessment of Improvement Krupa has not been seen in the outpatient setting by OT since 03/22/24 and outpatient OT POC on 04/17/24. Thus, recommend d/c from outpatient OT at this time. Clinician to re-evaluate as deemed appropriate by PCP with receipt of new referral for OT . - Plan Therapy Recommendations Discharge from Occupational Therapy
== END 2024-05-08 09:54 | disposition home or self-care (01) ==
LOC: OT 13:45
PROVIDERS: Family Provider Registered Nurse; PCP Registered Nurse; Referring Provider Orthopaedic Surgery; Visit Provider Orthopaedic Surgery
DX: M18.12 Unilateral primary osteoarthritis of first carpometacarpal joint, left hand (principal); M19.041 Primary osteoarthritis, right hand; M19.042 Primary osteoarthritis, left hand
CPT/HCPCS: 97035; 97110; 97140; 97165